=== PATIENT | female | born 1975 | race Caucasian/White ===

== ENCOUNTER 2018-12-04 03:44 | Emergency (ER) | payer MEDICAID ==
[~2018-12-04] VITALS: Ht 160 cm; Wt 77.0 kg
[2018-12-04] MEDS ORDERED: VISCOUS LIDOCAINE 2% 15 ML UDC MM PRN (06:45)
[2018-12-04 08:37] VITALS: BP 146/81
== END 2018-12-04 08:37 | disposition home or self-care (01) ==
LOC: ER 03:44
DX: T16.2XXA Foreign body in left ear, initial encounter (principal); Y93.84 Activity, sleeping; Y92.092 Bedroom in other non-institutional residence as the place of occurrence of the external cause
CPT/HCPCS: 69200; 99284

== ENCOUNTER 2023-03-08 08:28 | Emergency (ER) | payer MEDICAID ==
[~2023-03-08] VITALS: Ht 157.5 cm; Wt 70.3 kg
[2023-03-08 08:54] VITALS: BP 168/105; PULSE 99; RESP 16; TEMP 98.5; O2SAT 99
[2023-03-08 09:19] LABS: BASOPHILS % 0.9 % (0.0-2.0); EOSINOPHILS % 1.6 % (0.0-5.0); HEMATOCRIT. 44.4 % (36.0-48.0); HEMOGLOBIN. 15.4 g/dL (12.0-16.0); LYMPHOCYTES % 34.8 % (20.0-50.0); MEAN CORPUSCULAR HEMOGLOBIN 30.2 pg (28.0-32.0); MEAN CORPUSCULAR HGB CONC 34.6 g/dL (31.0-37.0); MEAN CORPUSCULAR VOLUME 87.2 fL (81.0-99.0); MEAN PLATELET VOLUME 8.2 fl (7.4-10.4); MONOCYTES % 5.8 % (2.0-8.0); NEUTROPHILS % 56.9 % (40.0-76.0); PLATELET 251 x1000/uL (130-400); RED BLOOD CELL COUNT 5.09 mill/uL (4.2-5.4); WHITE BLOOD COUNT 6.9 x1000/uL (4.5-11.0)
[2023-03-08 09:27] LABS: CHLORIDE 106 mEq/L (98-107); INDEX HEMOLYSI 1 (1-3); INDEX ICTERIC 1 (1-4); INDEX LIPEMIC 1 (1-3); POTASSIUM 3.8 mEq/L (3.5-5.1); SODIUM 137 mEq/L (136-145)
[2023-03-08 09:30] LABS: INR 1.1; PROTHROMBIN TIME 11.7 sec (9.6-11.0)
[2023-03-08 09:44] LABS: ALANINE AMINOTRANSFERASE 29 IU/L (13-61); ASPARTATE AMINOTRANSFERASE 13 IU/L (15-37); BILIRUBIN TOTAL 0.7 mg/dL (0.1-1.0); CALCIUM 8.8 mg/dL (8.5-10.1); CARBON DIOXIDE 27 mEq/L (21-32); CREATININE 0.6 mg/dL (0.6-1.3); GLUCOSE 196 mg/dL (70-105); TROPONIN I HIGH SENSITIVITY 4 ng/L (<54); UREA NITROGEN BLOOD 11 mg/dL (7-21)
[2023-03-08] MEDS ORDERED: TOPUD MT (11:31)
== END 2023-03-08 11:44 | disposition home or self-care (01) ==
LOC: ER 08:28
DX: R07.89 Other chest pain (principal)
CPT/HCPCS: 36415; 71045; 80053; 84484; 85025; 85379; 93005; 99285